=== PATIENT | male | born 1955 | race Caucasian/White ===

== ENCOUNTER 2018-04-14 09:38 | Outpatient (CLI) | payer OTHER ==
[~2018-04-14] VITALS: Ht 172.7 cm; Wt 95.9 kg
[2018-04-14 09:58] LABS: BASOPHILS 0.8 % (0-2); EOSINOPHILS 1.1 % (0-7); HEMATOCRIT 38.3 % (42.0-54.0); IMMATURE GRANULOCYTES 0.4 % (0-5); MCH 36.5 pg (26.0-34.0); MCHC 33.9 g/dL (31.0-37.0); MCV 107.6 fL (80.0-100.0); MEAN PLATELET VOLUME 10.4 fL (7.4-10.4); MONOCYTES 9.1 % (2-11); NEUTROPHILS 62.6 % (40-80); PLATELET COUNT 87 10x3/uL (130-400); RBC 3.56 10x6/uL (4.20-6.10); RDW 13.1 % (11.5-14.5); WBC 7.2 10x3/uL (4.8-10.8)
[2018-04-14] MEDS ORDERED: BAYER CHEWABLE81 MG PO (10:15)
[2018-04-14] MEDS ORDERED: ISOSORBIDE MONO30 M1 PO (10:16)
[2018-04-14] MEDS ORDERED: CARDIZEM CD240 MG PO (10:16)
[2018-04-14] MEDS ORDERED: PROTONIX40 MG PO (10:17)
[2018-04-14] MEDS ORDERED: COZAAR100 MG PO (10:17)
[2018-04-14 10:23] LABS: APTT 33.2 SECONDS (22.8-39.4); INR 1.1 (0.85-1.17); PROTIME 13.8 SECONDS (11.6-15.0)
[2018-04-14 10:24] VITALS: Ht 172.7 cm; Wt 95.9 kg
[2018-04-14 11:01] LABS: PLATELET ESTIMATE DECREASED
[2018-04-14 11:19] LABS: ANION GAP 15.6 mmol/L (8-16); CARBON DIOXIDE 22.8 mmol/L (21.0-32.0); CREATININE - SERUM 1.2 mg/dL (0.6-1.3); POTASSIUM - SERUM 4.4 mmol/L (3.5-5.1)
== END 2018-04-14 17:55 | disposition home or self-care (01) ==
LOC: D.SP 09:38 → D.CT 10:00 → D.SP 17:55
PROVIDERS: Specialist
DX: R19.02 Left upper quadrant abdominal swelling, mass and lump (principal); Z01.812 Encounter for preprocedural laboratory examination

== ENCOUNTER 2019-08-02 10:36 | Day surgery (SDC) | payer MEDICARE ==
[~2019-08-02] VITALS: Ht 172.7 cm; Wt 98.3 kg
[~2019-08-02 10:36] MED LIST: BAYER CHEWABLE81 MG PO; CARDIZEM CD240 MG PO; COZAAR100 MG PO; ISOSORBIDE MONO30 M1 PO; PROTONIX40 MG PO
[2019-08-02 11:57] LABS: APTT 29.2 SECONDS (22.8-39.4); INR 1.14 (0.85-1.17); PROTIME 14.1 SECONDS (11.6-15.0)
[2019-08-02 12:40] LABS: HEMATOCRIT 42.4 % (42.0-54.0); HEMOGLOBIN 14.4 g/dL (13.5-17.5); MCH 37.6 pg (26.0-34.0); MCV 110.7 fL (80.0-100.0); MEAN PLATELET VOLUME 11.4 fL (7.4-10.4); PLATELET COUNT 74 10x3/uL (130-400); RBC 3.83 10x6/uL (4.20-6.10); RDW 15.4 % (11.5-14.5); WBC 5.5 10x3/uL (4.8-10.8)
[2019-08-02 12:54] LABS: ALBUMIN 3.7 g/dL (3.4-5.0); ANION GAP 13.9 mmol/L (8-16); BILIRUBIN - TOTAL 4.66 mg/dL (0.2-1.3); CALCIUM 8.8 mg/dL (8.5-10.1); CARBON DIOXIDE 25.5 mmol/L (21.0-32.0); CREATININE - SERUM 1.2 mg/dL (0.6-1.3); POTASSIUM - SERUM 4.4 mmol/L (3.5-5.1); PROTEIN - SERUM 7.3 g/dL (6.4-8.2)
[2019-08-02] MEDS ORDERED: CHRONULAC30 ML PO (12:59)
[2019-08-02] MEDS ORDERED: ALDACTONE50 MG PO (13:00)
[2019-08-02] MEDS ORDERED: LIPITOR40 MG PO (13:00)
[2019-08-02] MEDS ORDERED: VITAMIN B-122500 MCG PO (13:01)
[2019-08-02 13:04] VITALS: BP 146/98; Ht 172.7 cm; Wt 98.3 kg
[2019-08-02 13:57] LABS: PLATELET ESTIMATE DECREASED
--- NOTE | 2019-08-02 16:22 | NUR ---
[address]53 CALL[address] OFFICE TO NOTIFY DR SOLER OF CONSULT PER REQUEST OF DR SANTANA. APPOINTMENT RECEIVED FOR PT. 1557 IV DC'D. CATHETER TIP INTACT. PRESSURE HELD AT IV SITE UNTIL BLEEDING CEASED. BANDAID APPLIED.
--- NOTE | 2019-08-04 07:36 | OP ---
PATIENT NAME: KENDRICK LIRIANO MEDICAL RECORD: [id number] :53 LOCATION:[facility] ADMISSION DATE: SURGEON: TERRANCE SANTANA DO DATE OF OPERATION: 08/02/2019 PROCEDURE: Colonoscopy with polypectomy, biopsies, and tattoo injection. SCOPE: Olympus video pediatric colonoscope. MEDICATIONS: Propofol 780 mg IV per anesthesia. WITHDRAWAL TIME: 23 minutes. ESTIMATED BLOOD LOSS: Minimal. COMPLICATIONS: None immediate. FINDINGS: Informed consent was given. The patient was made comfortable with the above medication. After reaching an adequate level of sedation by slow IV push, the patient was placed on his left side. A digital rectal examination was performed and was within normal limits. The endoscope was then advanced under direct visualization through the rectum to the cecum, confirmed by the presence of the appendiceal orifice and ileocecal valve. The endoscope was slowly withdrawn and mucosa was carefully examined. The prep quality on this examination was very poor, making visualization of the entire mucosa difficult to impossible. There were multiple polyps visualized on today's examination. The first was involving the ileocecal valve. The exact size of this polyp is not completely known due to the difficulty with reaching the cecum, the quality of prep, and inability to visualize the backside of the ileocecal valve itself. This polyp measures approximately 2.5 to 3 cm in size and is multilobulated and could have some high-grade dysplasia or even cancerous cells within it. Multiple cold forceps biopsies were taken and [place] ink was injected submucosally just distal to the site. In the ascending colon, there were 5 separate polyps, which ranged in size from 5 mm to 1.5 cm. They were all sessile and removed using a hot snare. In the transverse colon, there was a single sessile polyp, which measured approximately 1 cm in size, which was removed using hot snare. In the sigmoid colon, there were 3 separate polyps, which were sessile and ranged in size from 5 mm to 9 mm. They were all removed using a hot snare. There was evidence of mild to moderate diverticulosis of the sigmoid and descending colon. Retroflexion was performed in the rectum with visualization of grade I internal hemorrhoids without active bleeding. The endoscope was withdrawn from the patient. The patient tolerated the procedure well and there were no immediate complications. IMPRESSION: 1. Multiple polyps as described above, removed using hot snare. 2. Remaining polyps/possible tumor located at the ileocecal valve was biopsied with cold forceps. [place] ink tattoo was injected just distally to the ileocecal valve. 3. Mild to moderate diverticulosis of the descending and sigmoid colon. 4. Grade I internal hemorrhoids without bleeding. PLAN AND RECOMMENDATIONS: 1. Discharge home when recovery parameters are met. 2. Follow up biopsy specimen results. OPERATIVE REPORT [id number] KENDRICK LIRIANO 3. High fiber diet. 4. Continue current medications. 5. We will make a referral to Dr. Wu for consideration of APC and polypectomy versus resection of the ileocecal valve based on results of biopsies taken today. Of note, the patient's CEA level is elevated and this could be due to this site. 6. Recall colonoscopy will be dependent on further workup and treatment with biopsy result and Dr. Wu. TRANSINT:[id number] Voice Confirmation ID: [id number] DOCUMENT ID: [id number] TERRANCE SANTANA DO at 0736 CC: [id number] DICTATION DATE: 08/02/19 1517 SH[employer]TLECOCK FEATHER TRIMMER: 08/03/19 0047 [facility] 08/02/19 [facility] [address] [place] [address]
== END 2019-08-02 16:11 | disposition home or self-care (01) ==
LOC: D.OPS 10:36
PROVIDERS: Anesthesiology; ATTEND Internal Medicine Gastroenterology
DX: K63.5 Polyp of colon (principal); K57.90 Diverticulosis of intestine, part unspecified, without perforation or abscess without bleeding; K64.0 First degree hemorrhoids

== ENCOUNTER 2019-08-16 11:37 | Day surgery (SDC) | payer MEDICARE ==
[~2019-08-16] VITALS: Ht 172.7 cm; Wt 98.2 kg
[~2019-08-16 11:37] MED LIST changes: +ALDACTONE50 MG PO; +CHRONULAC30 ML PO; +LIPITOR40 MG PO; +VITAMIN B-122500 MCG PO
[2019-08-16 12:22] VITALS: BP 121/97; Ht 172.7 cm; Wt 98.2 kg
[2019-08-16 12:29] LABS: HEMATOCRIT 42.3 % (42.0-54.0); HEMOGLOBIN 14.1 g/dL (13.5-17.5); MCH 37.6 pg (26.0-34.0); MCHC 33.3 g/dL (31.0-37.0); MCV 112.8 fL (80.0-100.0); MEAN PLATELET VOLUME 10.9 fL (7.4-10.4); PLATELET COUNT 88 10x3/uL (130-400); RBC 3.75 10x6/uL (4.20-6.10); WBC 5.1 10x3/uL (4.8-10.8)
--- NOTE | 2019-08-16 13:27 | NUR ---
[address] SANTANA. DENIES NEEDS.
[2019-08-16 13:48] LABS: PLATELET ESTIMATE DECREASED
--- NOTE | 2019-08-18 19:09 | OP ---
PATIENT NAME: KENDRICK LIRIANO MEDICAL RECORD: [id number] :53 LOCATION:[facility] ADMISSION DATE: SURGEON: TERRANCE SANTANA DO DATE OF OPERATION: 08/16/2019 PROCEDURE: EGD with biopsy. INDICATIONS FOR PROCEDURE: Ascites, elevated CEA level, cirrhosis of the liver, abnormal findings on CT, portal hypertension. SCOPE: Olympus video gastroscope. MEDICATIONS: Propofol 280 mg IV per anesthesia. ESTIMATED BLOOD LOSS: Minimal. COMPLICATIONS: None. FINDINGS: Informed consent was given. The patient was made comfortable with the above medication. After reaching an adequate level of sedation by slow IV push, the patient was placed on his left side. The endoscope was advanced under direct visualization through the mouth to the second portion of the duodenum with ease. In the proximal esophagus, there was an inlet patch consistent with ectopic gastric mucosa. A single cold forceps biopsy was taken to submit for histopathology and to confirm the benign nature of the finding. Throughout the esophagus, there were no varices appreciated. At the GE junction, there was some erosive reflux esophagitis. The endoscope was advanced beyond the GE junction into the stomach and retroflexed to view the cardia and fundus, which appeared normal. Throughout the entire stomach, there was [id number] portal hypertensive gastropathy without bleeding. The endoscope was advanced beyond the pylorus into the duodenum, which appeared normal to the second portion. The endoscope was then withdrawn from the patient. The patient tolerated the procedure well and there were no complications. IMPRESSIONS: 1. 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 2. Erosive reflux-induced esophagitis. 3. [id number] portal hypertensive gastropathy. PLAN AND RECOMMENDATIONS: 1. Discharge home when recovery parameters are met. 2. Follow up biopsy specimen results. 3. GERD diet and reflux precautions. 4. We will prescribe a PPI at 40 mg equivalent to be taken for 8 weeks regarding the erosive esophagitis visualized. 5. Repeat EGD in 2 years for surveillance of the esophagus regarding increased risk for development of esophageal varices. TRANSINT:[id number] Voice Confirmation ID: [id number] DOCUMENT ID: [id number] OPERATIVE REPORT [id number] KENDRICK LIRIANO TERRANCE SANTANA DO at 190 CC: [id number] DICTATION DATE: 08/16/19 1306 TOOL MECHANIC: 08/16/19 1315 [facility] 08/16/19 [facility] [address] [place] [address], [facility]
== END 2019-08-16 13:50 | disposition home or self-care (01) ==
LOC: D.OPS 11:37
PROVIDERS: Anesthesiology; ATTEND Internal Medicine Gastroenterology
DX: R18.8 Other ascites (principal); R97.0 Elevated carcinoembryonic antigen [CEA]; K74.60 Unspecified cirrhosis of liver; R93.89 Abnormal findings on diagnostic imaging of other specified body structures; K76.6 Portal hypertension; Q39.8 Other congenital malformations of esophagus; K21.0 Gastro-esophageal reflux disease with esophagitis; K31.89 Other diseases of stomach and duodenum; I11.0 Hypertensive heart disease with heart failure; I50.9 Heart failure, unspecified